=== PATIENT | female | born 1970 | race Caucasian/White ===

== ENCOUNTER 2016-10-02 20:58 | Emergency (ER) | payer MEDICAID | END 2016-10-02 23:50 | disposition left against medical advice (07) | LOC: D.ER 20:58 | DX: M54.5 Low back pain (principal) ==

== ENCOUNTER 2017-04-14 15:38 | Emergency (ER) | payer MEDICAID | END 2017-04-14 18:51 | disposition home or self-care (01) | LOC: D.ER 15:38 | DX: M54.2 Cervicalgia (principal) ==

== ENCOUNTER 2017-07-23 20:03 | Emergency (ER) | payer MEDICAID | END 2017-07-24 01:18 | disposition home or self-care (01) | LOC: D.ER 20:03 | DX: S43.102A Unspecified dislocation of left acromioclavicular joint, initial encounter (principal); W00.0XXA Fall on same level due to ice and snow, initial encounter; Y93.89 Activity, other specified; Y92.019 Unspecified place in single-family (private) house as the place of occurrence of the external cause ==